=== PATIENT | female | born 1955 | race Caucasian/White ===

== ENCOUNTER 2017-06-22 23:23 | Observation (INO) | payer BC, OTHER ==
[2017-06-22] MEDS ORDERED: Dexamethasone 10 MG/ML VIAL ONE (23:46)
--- NOTE | 2017-06-22 23:56 | RAD ---
PORTABLE CHEST: 06/22/17 HISTORY: Dyspnea. Heart size is within normal limits. There are atherosclerotic changes of the aorta. Lungs are clear o f any focal infiltrative process. IMPRESSION: No active intrathoracic disease. POS: [facility]
[2017-06-22 23:59] LABS: #Basophils 0.1 thou/uL (0.0-0.2); #Eosinphils 0.7 thou/uL (0.0-0.7); #Lymphocytes 4.9 thou/uL (1.20-3.40); #Monocytes 1.4 thou/uL (0.11-0.59); #Neutrophils 9.2 thou/uL (1.40-6.50); %Basophils 0.8 % (0.0-1.0); %Eosinophils 4.1 % (0.0-10.0); %Lymphocytes 30.2 % (21.0-51.0); %Monocytes 8.4 % (0.0-10.0); %Neutrophils 56.5 % (42.0-75.0); Hemoglobin 14.4 g/dL (12.0-16.0); Mean Corpuscular HGB CONC 32.6 g/dL (32.0-36.0); Mean Corpuscular Hemoglobin 32.1 pg (27.0-31.0); Mean Corpuscular Volume 98.5 fl (81.0-99.0); Mean Platelet Volume 6.6 fL (7.4-10.4); Platelet Count 293 thou/uL (130-400); RBC Distribution Width 11.8 % (11.5-14.5); Red Blood Cell (RBC) Count 4.49 mill/uL (4.20-5.40); White Blood Cell (WBC) Count 16.4 thou/uL (4.8-10.8)
[2017-06-23 00:09] LABS: INR-International Normal Ratio 0.9; PTT 30.1 SEC (22.9-36.1); Prothrombin Time 12.7 SEC (12.0-14.7)
[2017-06-23] MEDS ORDERED: Albuterol Sulfate 2.5 mg/3 ml Neb ONE ×2 (00:16)
[2017-06-23 00:21] LABS: ALT (SGPT) 14 U/L (8-55); AST (SGOT) 14 U/L (5-34); Albumin 4.4 g/dL (3.4-4.8); Alkaline Phosphatase 62 U/L (40-150); Anion Gap 15 mmol/L (10-20); BUN (Urea Nitrogen) 8 mg/dL (9.8-20.1); Bilirubin, Total 0.6 mg/dL (0.2-1.2); CK (CPK) 205 U/L (29-168); Calc. Creatinine Clearance 0 mL/min (70-130); Calcium 9.4 mg/dL (7.8-10.44); Carbon Dioxide 23 mmol/L (23-31); Chloride 105 mmol/L (98-107); Estimated GFR-MDRD 83; Globulin 2.8 g/dL (2.4-3.5); Glucose 151 mg/dL (80-115); Lipase 6 U/L (8-78); Potassium 3.7 mmol/L (3.5-5.1); Protein, Total 7.2 g/dL (6.0-8.3); Sodium 139 mmol/L (136-145)
[2017-06-23 00:24] LABS: CKMB 2.3 ng/mL (0-6.6); Troponin I Less than 0.010 ng/mL (< 0.028)
[2017-06-23] MEDS ORDERED: Magnesium 2 GM/NS 0.9% 100 ML 2 GM in Premix Bag 1 BAG IVPB SCH (00:45)
[2017-06-23 01:24] LABS: CO2 Tension 37.6 mmHg (35.0-45.0); O2 Tension (PaO2) 81.1 mmHg (80.0-100.0); pH, Arterial 7.36 (7.35-7.45)
[2017-06-23 01:25] LABS: Actual Bicarbonate (HCO3a) 20.8 mEq/L (22-26); Base Excess (BEa) 4.2 mEq/L (0 (+/-) 2.5); Hematocrit-ABG 41.1 % (36.0-47.0)
[2017-06-23 01:26] LABS: Analyzer IN Cardio ER; Calcium, Ionized 1.1 mmol/L (1.12-1.30); Puncture Site RRA
[2017-06-23 03:30] LABS: Bilirubin Negative (Negative); Blood, Urine Trace (Negative); Clarity CLEAR (Clear); Glucose, Urine (Dipstick) 250 mg/dL (Negative); Leukocyte Moderate (Negative); Nitrite Negative (Negative); Protein, Urine (Dipstick) Negative (Neg-Trace); Urobilinogen 0.2 mg/dL (0.2-1.0)
[2017-06-23 03:33] LABS: Bacteria/HPF None Seen HPF (None Seen); Hyaline Casts/LPF 0-3 HYALINE CAST LPF (0-3 Hyaline); Pathc Cast-AUWi Flag 0.13 (0-2.49); RBC/HPF 0-3 HPF (0-3); Squamous Epithelial 0-3 HPF (0-3); WBC/HPF 21-50 HPF (0-3)
[2017-06-23 05:40] VITALS: BMI 34.4
[2017-06-23] MEDS ORDERED: Sodium Chloride 0.9% 1,000 ML IV SCH (05:44)
[2017-06-23] MEDS ORDERED: Ondansetron ODT 4 MG TAB SL PRN (05:44)
[2017-06-23] MEDS ORDERED: Ondansetron HCl/PF 4 MG/2 ML Vial IVP PRN (05:44)
[2017-06-23] MEDS ORDERED: Dexamethasone 4 mg/ml Vial SLOW IVP SCH (09:00)
[2017-06-23] MEDS ORDERED: HYDROcodone/Acetaminophen 5/325 mg Tablet PO PRN (11:57)
[2017-06-23] MEDS ORDERED: Ondansetron ODT 4 MG TAB PO PRN (11:57)
[2017-06-23] MEDS ORDERED: Albuterol Sulfate 2.5 mg/3 ml Neb NEB PRN (11:57)
[2017-06-23] MEDS ORDERED: HYDROcodone/Acetaminophen 10/325 mg Tablet PO PRN (11:57)
[2017-06-23] MEDS ORDERED: Acetaminophen 325 MG TAB PO PRN (11:57)
[2017-06-23] MEDS ORDERED: guaiFENesin ER 600 MG TAB PO SCH (12:15)
[2017-06-23] MEDS ORDERED: predniSONE 20 MG TAB PO SCH (12:15)
[2017-06-23] MEDS ORDERED: Enoxaparin Sodium 40 MG/0.4 ML SYRINGE SC SCH (12:15)
[2017-06-23] MEDS: Nicotine 7 MG PATCH TD SCH (13:03)
--- NOTE | 2017-06-23 18:42 | HP ---
PRIMARY CARE PHYSICIAN: Ernesto Waite D.O. DATE OF ADMISSION: 06/23/2017 CHIEF COMPLAINT: Shortness of breath. HISTORY OF PRESENT ILLNESS: Ms. Ruiz is a pleasant 62-year-old [place] female with no known past med ical history, but ongoing tobacco abuse who presented to an outside Urgent Care Clinic on 06/22/2017 with shortness of breath. Per the history given by the daughter via translation, the patient was in [place] until about 9 days prior to presentation. During the time she was there, she spent time wi th family member who had had flu-like illness. Since she came back from [facility] 9 days ago, she began having a mild cough that was persistent. No fevers or chills. No chest pain or difficulty breathing . About 2 days ago, symptoms increased and the patient became progressively more short of breath. A pparently she presented to urgent care clinic for evaluation where she was given 2 DuoNebs and antibi otics intramuscularly and some oral antibiotics, Tamiflu and breathing medicines were called in. The patient there was allegedly flu negative. Apparently the prescriptions never made it to the pharmacy and so late last night, the patient was br ought back to the emergency department here for further evaluation. EMS was initially called on arri rudolph, satting 98% on room air, respiratory rate was 26. [place] in [place] de part[place]. En route got 2 DuoNebs and some Solu-Medrol IM and on arrival, respiratory rate was down t o 16, oxygen saturation was 99% on 2 liters. In the ER here, she was worked up. Flu was negative. Chest x-ray is negative. Give mag sulfate, Du oNebs, 2 liters normal saline, and 10 mg of Decadron. We were called for admission. The patient was accepted by scanning coordinator and transferred to the floor. I am seeing her for a formal ad mission. She denies any current complaints, feeling much better, satting well on 2 liters nasal cannula. PAST MEDICAL HISTORY: 1. Tobacco abuse. 2. COPD, new diagnosis. 3. Obesity. PAST SURGICAL HISTORY: Hysterectomy remotely. HOME MEDICATIONS: None. ALLERGIES: NKDA. FAMILY HISTORY: Negative for clotting or bleeding disorder, no immune dysfunction. SOCIAL HISTORY: Significant for tobacco about 1/2-3/4 a pack per day for 40+ years. She had a son-i n-law that she lives with flu-like illness. Daughter had flu-like symptoms, but negative flu test. She is from [facility]. No recent travel other than [place]. REVIEW OF SYSTEMS: A 10-point review of systems was performed, negative for all other systems except as stated per HPI. PHYSICAL EXAMINATION: VITAL SIGNS: Temperature 98.1, pulse 93, blood pressure 101/59, respiratory rate 18-20, satting 99% on 2 liters nasal cannula. GENERAL: She is awake, alert, oriented x3. She is well-developed, well-nourished, obese female, chan ears to be in no acute distress. HEENT: Normocephalic, atraumatic. Pupils are equal and reactive to light bilaterally, mucous membra ne moist. There is no visible lesion and no thrush. Nasal cannula is in place. NECK: Supple. There is no lymphadenopathy, JVD or thyromegaly. Carotid upstrokes without bruits. LUNGS: Have slight pulmonary expiratory phase. She has a left-sided posterior expiratory wheezes pr esent. Good air movement in and out bilaterally. No crackles, no rhonchi. CARDIOVASCULAR: She has a slight tachycardic. Normal S1, S2. No S3, S4. No murmurs. ABDOMEN: Obese, it is nontender, nondistended, no mass or organomegaly. Good bowel sounds in all 4 quadrants. No rebound, rigidity or guarding. EXTREMITIES: No cyanosis, no clubbing, no edema. A 2+ peripheral pulses. SKIN: Warm, moist, and well perfused without rashes or lesions. NEUROLOGIC: Cranial nerves II-XII are grossly intact without any focal neurologic deficits. She has good 5/5 strength in all 4 extremities and normal speech pattern. MUSCULOSKELETAL: Normal to inspection. She has no joint inflammation. No palpable effusions. LABORATORY DATA AND IMAGING DATA: White blood cell count here 16.4 with a slight granulocytosis, but no bands. Hemoglobin is 14.4, hematocrit 44.2, and platelet count is 293,000. CMP showed sodium 13 9, potassium 3.7, chloride 105, bicarbonate 23, BUN 8, creatinine 0.71, and glucose 151 with calcium of 8.4. INR was 0.9. BNP was normal at 14.7. CK slightly up at 205, MB normal at 2.3 and troponin I undetectable. Urinalysis showed 21-50 white blood cells, but no bacteria. Flu test here was negat arturo. Lactic acid 1.6. An ABG was normal. Chest x-ray showed no acute cardiopulmonary disease. ASSESSMENT AND PLAN: 1. Acute exacerbation of chronic obstructive pulmonary disease. Chronic obstructive pulmonary disea se has been previously diagnosed. We will use prednisone, scheduled nebs and p.r.n. albuterol, and l evofloxacin. We will not continue Tamiflu as patient is flu negative. We will place in observation and watch her overnight. We will discharge in the morning if stable on prednisone, home neb treatmen ts and follow up with primary care. 2. Tobacco abuse, ongoing counseling. We will give her a nicotine patch here. We subsequently offe red prescription and counseling on discharge. 3. FULL CODE. 4. Obesity. 5. Viral upper respiratory infection, she has had cough and what sounds like viral bronchitis. We w ill cover for atypical bacteria just in case and will continue to follow.
[2017-06-23] MEDS: Famotidine 20 MG TAB PO SCH (20:08)
[2017-06-23] MEDS: guaiFENesin ER 600 MG TAB PO SCH (20:08)
[2017-06-24 04:27] VITALS: TEMP 98.3
[2017-06-24] MEDS ORDERED: predniSONE 20 MG TAB PO SCH (08:00)
[2017-06-24] MEDS: Famotidine 20 MG TAB PO SCH (08:24)
[2017-06-24] MEDS: guaiFENesin ER 600 MG TAB PO SCH (08:24)
[2017-06-24] MEDS ORDERED: Enoxaparin Sodium 40 MG/0.4 ML SYRINGE SC SCH (09:00)
[2017-06-24 10:00] VITALS: BP 117/70
--- NOTE | 2017-06-24 11:31 | DIS ---
DATE OF ADMISSION: 06/23/2017 DATE OF DISCHARGE: 06/24/2017 DISCHARGE DIAGNOSES: 1. Acute exacerbation of chronic obstructive pulmonary disease. 2. New diagnosis of chronic obstructive pulmonary disease. 3. Ongoing tobacco abuse. 4. Acute hypoxic respiratory failure - resolved. 5. Obesity. CONSULTATIONS: None. PROCEDURES: None. HOSPITAL COURSE: Ms. Ruiz is a 62-year-old Burkin[place] female who developed acute shortness of breath af ter a prolonged coughing history. She subsequently presented in the emergency department for evaluat ion. She was found to be borderline hypoxic, and wheezing. She was admitted to the hospital. HOSPITAL COURSE: The patient was accepted by the mail distribution scheme examiner and was admitted by me the following mor carlos. She was placed in observation, nebs, steroids, and levofloxacin were continued. I discussed t he case with her and her family, likely a viral bronchitis. The patient improved over the course of the day and through the night. She was weaned off oxygen the morning of 06/24/2017, she was tolerating her breathing treatments and was stable for discharge with outpatient followup. DISCHARGE CONDITION: Good. DISPOSITION: Discharged home via private vehicle. DISCHARGE MEDICATIONS: 1. DuoNeb 3 mL q.6h. scheduled. 2. Albuterol 2.5 mg nebulized q.2h. p.r.n. shortness of breath or wheezing. 3. Prednisone 40 mg daily to decrease by 10 mg every 3 days until tapered off. 4. Levofloxacin 750 mg p.o. daily for 4 more days. 5. Guaifenesin 1200 mg p.o. b.i.d. FOLLOWUP APPOINTMENTS 1. Dr. Waite, primary care physician within a week. 2. Referrals made to Pulmonary with Dr. Jules Antunez for new diagnosis of COPD and for establishment of care. DISCHARGE ACTIVITY: Per cardiopulmonary limits. DISCHARGE DIET: Heart healthy recommended.
[2017-06-24] MEDS: Nicotine 7 MG PATCH TD SCH (12:29)
--- NOTE | 2017-06-26 12:09 | EKG ---
Test Reason : SOB Blood Pressure : / mmHG Vent. Rate : 102 BPM Atrial Rate : 102 BPM P-R Int : 144 ms QRS Dur : 084 ms QT Int : 352 ms P-R-T Axes : 056 022 026 degrees QTc Int : 458 ms Sinus tachycardia Cannot rule out Anterior infarct , age undetermined Abnormal ECG Confirmed by ARNOL IBARRA, WILMER ([id number]), news videotape editor ROBB COLE ([id number]) on 06/26/2017 12:09:14 PM Referred By: Confirmed By:WILMER AMBROSE MD
== END 2017-06-24 12:35 | disposition home or self-care (01) ==
LOC: ERS 23:23 → T4-B 06-23 05:04 → INTOOBSV 06-23 05:07
PROVIDERS: ADMIT Family Medicine; ATTEND Family Medicine
DX: J44.1 Chronic obstructive pulmonary disease with (acute) exacerbation (principal); J96.01 Acute respiratory failure with hypoxia; F17.210 Nicotine dependence, cigarettes, uncomplicated; E66.9 Obesity, unspecified; Z68.34 Body mass index [BMI] 34.0-34.9, adult; Z90.710 Acquired absence of both cervix and uterus
CPT/HCPCS: 36415; 71045; 80053; 81003; 81015; 82553; 82805; 83605; 83690; 83880; 84484; 85025; 85610; 85730; 87040; 93005; 94640; 94644; 96365; 96367; 96372; 96375; A4216; G0378; J1100; J1650; J1956; J3475; J7506; J7611; J7620

== ENCOUNTER 2017-07-01 14:57 | Outpatient (CLI) | payer BC | END 2017-07-01 14:58 | disposition home or self-care (01) | LOC: CP 14:57 | PROVIDERS: ATTEND Family Medicine | DX: J44.9 Chronic obstructive pulmonary disease, unspecified (principal) | CPT/HCPCS: 94060; 94727; 94729 ==

== ENCOUNTER 2017-07-04 09:23 | Emergency (ER) | payer BC ==
[2017-07-04 10:01] LABS: #Basophils 0.1 thou/uL (0.0-0.2); #Eosinphils 1.8 thou/uL (0.0-0.7); #Lymphocytes 3.7 thou/uL (1.20-3.40); #Monocytes 1.1 thou/uL (0.11-0.59); #Neutrophils 11.7 thou/uL (1.40-6.50); %Basophils 0.6 % (0.0-1.0); %Lymphocytes 19.9 % (21.0-51.0); %Monocytes 5.9 % (0.0-10.0); %Neutrophils 63.6 % (42.0-75.0); Hemoglobin 15.2 g/dL (12.0-16.0); Mean Corpuscular HGB CONC 32.5 g/dL (32.0-36.0); Mean Corpuscular Hemoglobin 32.2 pg (27.0-31.0); Mean Platelet Volume 6.1 fL (7.4-10.4); Platelet Count 371 thou/uL (130-400); Red Blood Cell (RBC) Count 4.71 mill/uL (4.20-5.40); White Blood Cell (WBC) Count 18.4 thou/uL (4.8-10.8)
[2017-07-04] MEDS ORDERED: Albuterol Sulfate 2.5 mg/3 ml Neb ONE (10:05)
[2017-07-04 10:24] LABS: ALT (SGPT) 21 U/L (8-55); AST (SGOT) 12 U/L (5-34); Albumin 4.5 g/dL (3.4-4.8); Alkaline Phosphatase 60 U/L (40-150); Anion Gap 16 mmol/L (10-20); BUN (Urea Nitrogen) 17 mg/dL (9.8-20.1); Bilirubin, Total 0.7 mg/dL (0.2-1.2); Calc. Creatinine Clearance 0 mL/min (70-130); Calcium 9.7 mg/dL (7.8-10.44); Carbon Dioxide 23 mmol/L (23-31); Chloride 102 mmol/L (98-107); Estimated GFR-MDRD 75; Globulin 2.7 g/dL (2.4-3.5); Glucose 231 mg/dL (80-115); Potassium 4.4 mmol/L (3.5-5.1); Protein, Total 7.2 g/dL (6.0-8.3); Sodium 137 mmol/L (136-145)
--- NOTE | 2017-07-04 10:48 | RAD ---
RADIOGRAPH CHEST 1 VIEW: HISTORY: 62-year-old female with cough. FINDINGS: There are no air space densities, pulmonary edema, pneumothorax, or cardiomegaly. The lateral costop hrenic angles are sharp. IMPRESSION: No acute cardiopulmonary findings. aracely [] POS: [facility]
== END 2017-07-04 13:25 | disposition home or self-care (01) ==
LOC: ERS 09:23
DX: J44.1 Chronic obstructive pulmonary disease with (acute) exacerbation (principal); J01.90 Acute sinusitis, unspecified; F17.210 Nicotine dependence, cigarettes, uncomplicated; Z71.6 Tobacco abuse counseling; Z79.52 Long term (current) use of systemic steroids; Z79.899 Other long term (current) drug therapy
CPT/HCPCS: 36415; 71045; 80053; 85025; 94644; 94760; 99406; J7611

== ENCOUNTER 2018-04-13 06:32 | Day surgery (SDC) | payer OTHER ==
[2018-04-12 13:33] VITALS: BMI 38.1
--- NOTE | 2018-04-12 14:37 | HP ---
DATE OF ADMISSION: 04/13/2018 HISTORY OF PRESENT ILLNESS: This is a 63-year-old female who comes for a colonoscopy for colon cance r screening. The patient has no specific GI symptoms. There is no family history of colon cancer. ALLERGIES: None. MEDICAL ILLNESSES: 1. Obesity. 2. Chronic acid reflux. 3. Chronic obstructive pulmonary disease. PHYSICAL EXAMINATION: GENERAL: Patient is obese, appears comfortable. VITAL SIGNS: Pulse is 70, blood pressure 130/76. HEENT: Conjunctivae clear. NECK: Supple. No adenitis or thyromegaly noted. CARDIOVASCULAR SYSTEM: First and second heart sounds normal. LUNGS: Clear to auscultation. ABDOMEN: Soft. No organomegaly. No tenderness. No masses. EXTREMITIES: Reveal no edema. ADMITTING DIAGNOSIS: This is a 63-year-old female comes for colonoscopy for colon cancer screening.
[2018-04-13] MEDS ORDERED: Lidocaine 1% PF 5 ML VIAL ONE (09:53)
[2018-04-13] MEDS ORDERED: PROPOFOL 200 MG/20 ML VIAL ONE (09:53)
--- NOTE | 2018-04-18 16:12 | OP ---
DATE OF PROCEDURE: 04/13/2018 OPERATIVE PROCEDURE: Colonoscopy. PREOPERATIVE DIAGNOSIS: A 63-year-old female, undergoing colonoscopy for colon cancer. POSTOPERATIVE DIAGNOSES: 1. Sigmoid diverticulosis. 2. Hemorrhoids. DESCRIPTION OF PROCEDURE: The patient was placed in the left lateral position and was given sedation by Anesthesia Department. A rectal exam was done before the scope was advanced into rectum. No lesions felt on rectal exam. A Pentax video colonoscope was introduced into the rectum, advanced all the way into the cecum. The prep was good. The mucosa appeared to be normal. The appendiceal office, ileocecal valve , ascending colon, hepatic flexure transverse colon, splenic flexure, no pathology seen. The patient had predominantly left-sided diverticular disease . DISCHARGE PLANNING: A 63-year-old female came for a colonoscopy for colon cancer. The patient is at average risk for colon cancer. The colonoscopy showed no polyps. DISCHARGE RECOMMENDATIONS: 1. High-fiber diet. 2. The patient advised to call me if she develops abdominal pain, hematochezia , or fever. 3. Repeat colonoscopy in 10 years. Job ID: [id number] [facility] HOSPITALRamana
== END 2018-04-13 09:48 | disposition home or self-care (01) ==
LOC: SDC 06:32
PROVIDERS: ATTEND Internal Medicine Gastroenterology
PROC: 0DJD8ZZ Inspection of Lower Intestinal Tract, Via Natural or Artificial Opening Endoscopic (ICD-10-PCS; principal; 2018-04-13)
DX: Z12.11 Encounter for screening for malignant neoplasm of colon (principal); K57.30 Diverticulosis of large intestine without perforation or abscess without bleeding; K64.9 Unspecified hemorrhoids; K21.9 Gastro-esophageal reflux disease without esophagitis; J44.9 Chronic obstructive pulmonary disease, unspecified; E66.9 Obesity, unspecified; Z68.38 Body mass index [BMI] 38.0-38.9, adult; Z79.899 Other long term (current) drug therapy; Z88.0 Allergy status to penicillin
CPT/HCPCS: J2001; J2704